=== PATIENT | female | born 1945 | race Caucasian/White ===

== ENCOUNTER 2023-02-12 11:25 | Inpatient (IN) | payer MEDICARE, OTHER ==
[~2023-02-12] VITALS: Ht 162.5 cm; Wt 131.1 kg
[~2023-02-12 11:25] MED LIST: APRESOLINE25 MG PO; BUSPIRONE10 MG PO; DRIZALMA SPRINK60 MG PO; GABAPENTIN100 M2 PO; GAVISCON ES TA1 EACH PO; HYDROCODONE-AC1 EAC1 PO; IRON325 M1 PO; LEVOFLOXACIN750 M2 PO; LEVOTHYROXINE75 MCG PO; MIRALAX17 GM PO; MUCUS RELIEF600 MG PO; NORVASC2.5 MG PO; NORVASC5 MG PO; PROTONIX40 MG PO
[2023-02-12 11:29] VITALS: BP 137/71
[2023-02-12] MEDS ORDERED: PROVENTIL HFA6.7 GM IH (11:51)
[2023-02-12] MEDS ORDERED: VITAMIN B121000 MC1 PO (11:52)
[2023-02-12] MEDS ORDERED: DICLOFENAC SODI50 GM T (11:56)
[2023-02-12] MEDS ORDERED: Ipratropium Brom3 ML NEB (12:01)
[2023-02-12] MEDS ORDERED: OXYCODONE-ACET1 EACH PO (12:04)
[2023-02-12] MEDS ORDERED: Magnesium Oxid400 MG PO (12:06)
[2023-02-12] MEDS ORDERED: TRELEGY ELLIPT1 EAC1 INH (12:07)
[2023-02-12] MEDS ORDERED: Carafate1 GM PO (12:07)
[2023-02-12] MEDS ORDERED: SENNA8.6 MG PO (12:07)
[2023-02-12] MEDS ORDERED: TYLENOL EXTRA500 MG PO (12:08)
[2023-02-12 12:09] LABS: BASO % 0.4 % (0.0-1.0); EOS # 0.1 10*3/uL (0.0-0.4); EOS % 1.3 % (1.0-4.0); HEMATOCRIT 38.1 % (37.0-47.0); LYMPH # 0.5 10*3/uL (1.3-4.4); LYMPH % 9.8 % (27.0-41.0); MEAN CELL VOLUME 96.5 fl (81.0-99.0); MEAN CORPUSCULAR HGB 31.1 pg (27.0-31.0); MEAN CORPUSCULAR HGB CONC 32.3 g/dl (33.0-37.0); MEAN PLATELET VOLUME 9.9 fl (9.6-12.3); MONO # 0.2 10*3/uL (0.1-1.0); MONO % 4.4 % (3.0-9.0); NEUT % 83.7 % (47.0-73.0); PLATELET COUNT AUTOMATED 192 10*3/uL (130-400); RED BLOOD COUNT 3.95 10*6/uL (4.10-5.10); RED CELL DISTRI WIDTH 13.2 % (0-14.5); WHITE BLOOD COUNT 4.8 10*3/uL (4.8-10.8)
[2023-02-12 12:32] LABS: ALKALINE PHOSPHATASE 143 U/L (46-116); BUN 9 mg/dl (9-23); CHLORIDE 102 mmol/L (98-107); POTASSIUM 3.6 mmol/L (3.4-5.1); SGPT/ALT 433 U/L (10-49); TOTAL PROTEIN 6.8 gm/dL (6.0-8.0)
[2023-02-12 13:17] LABS: BILIRUBIN Negative (Negative); BLOOD Negative (Negative); CLARITY Clear (Clear); COLOR Yellow (Yellow); GLUCOSE Negative (Negative); KETONE Negative (Negative); LEUKO ESTERASE Negative (Negative); NITRITE Negative (Negative); PH 7.5 (4.5-8.0); SPECIFIC GRAVITY <= 1.005 (1.001-1.030)
[2023-02-12 13:30] LABS: EPITHELIAL CELLS 0-2; WBC 0-2 wbc/hpf (0-5)
[2023-02-12 13:31] LABS: BACTERIA TRACE
[2023-02-12 15:16] LABS: ACT PARTIAL THROMBO TIME 25.7 SECONDS (20.0-32.1)
[2023-02-12 19:29] VITALS: BP 141/87
[2023-02-12 23:09] VITALS: BP 128/72
[2023-02-12 23:23] VITALS: BP 143/68
[2023-02-13 06:38] LABS: BASO % 1.3 % (0.0-1.0); EOS # 0.3 10*3/uL (0.0-0.4); EOS % 8.6 % (1.0-4.0); HEMATOCRIT 37.1 % (37.0-47.0); LYMPH # 0.6 10*3/uL (1.3-4.4); LYMPH % 18.1 % (27.0-41.0); MEAN CELL VOLUME 97.4 fl (81.0-99.0); MEAN CORPUSCULAR HGB 31.5 pg (27.0-31.0); MEAN CORPUSCULAR HGB CONC 32.3 g/dl (33.0-37.0); MEAN PLATELET VOLUME 9.9 fl (9.6-12.3); MONO # 0.2 10*3/uL (0.1-1.0); MONO % 5.9 % (3.0-9.0); NEUT % 65.8 % (47.0-73.0); PLATELET COUNT AUTOMATED 190 10*3/uL (130-400); RED BLOOD COUNT 3.81 10*6/uL (4.10-5.10); RED CELL DISTRI WIDTH 13.3 % (0-14.5)
[2023-02-13 06:51] LABS: ACT PARTIAL THROMBO TIME 26.2 SECONDS (20.0-32.1)
[2023-02-13 07:47] LABS: ALKALINE PHOSPHATASE 180 U/L (46-116); BUN 10 mg/dl (9-23); CHLORIDE 101 mmol/L (98-107); CHOLESTEROL 159 mg/dL (<200); LDL CHOLESTEROL 54 mg/dL (9-159); POTASSIUM 3.2 mmol/L (3.4-5.1); SGPT/ALT 738 U/L (10-49); TOTAL PROTEIN 6.5 gm/dL (6.0-8.0); TRIGLYCERIDES 83 mg/dl (<150)
[2023-02-13 08:00] VITALS: BP 157/69
[2023-02-13 12:00] VITALS: BP 141/78
[2023-02-13 16:00] VITALS: BP 160/77
[2023-02-13 20:00] VITALS: BP 138/61
[2023-02-14] VITALS: BP 142/54
[2023-02-14 06:44] LABS: BASO % 0.8 % (0.0-1.0); EOS # 0.3 10*3/uL (0.0-0.4); HEMATOCRIT 33.3 % (37.0-47.0); LYMPH # 0.8 10*3/uL (1.3-4.4); MEAN CELL VOLUME 95.4 fl (81.0-99.0); MEAN CORPUSCULAR HGB 31.5 pg (27.0-31.0); MEAN PLATELET VOLUME 9.7 fl (9.6-12.3); MONO # 0.3 10*3/uL (0.1-1.0); MONO % 6.4 % (3.0-9.0); NEUT # 3.7 10*3/uL (2.3-7.9); NEUT % 72.4 % (47.0-73.0); PLATELET COUNT AUTOMATED 165 10*3/uL (130-400); RED BLOOD COUNT 3.49 10*6/uL (4.10-5.10); RED CELL DISTRI WIDTH 13.3 % (0-14.5); WHITE BLOOD COUNT 5.2 10*3/uL (4.8-10.8)
[2023-02-14 07:07] LABS: ALKALINE PHOSPHATASE 139 U/L (46-116); BUN 9 mg/dl (9-23); CHLORIDE 105 mmol/L (98-107); POTASSIUM 3.4 mmol/L (3.4-5.1); SGPT/ALT 390 U/L (10-49); TOTAL PROTEIN 5.9 gm/dL (6.0-8.0)
[2023-02-14 08:00] VITALS: BP 152/73
[2023-02-14 12:00] VITALS: BP 129/68
[2023-02-14 16:00] VITALS: BP 141/77
[2023-02-14 20:00] VITALS: BP 140/73
[2023-02-15] VITALS: BP 156/73
[2023-02-15 05:06] LABS: HBSAG Negative (Negative); HEP B CORE AB, IGM Negative (Negative); HEPATITIS C ANTIBODY Non Reactive (Non Reactive)
[2023-02-15 06:08] LABS: CYTOMEGALOVIRUS AB, IGG >10.00 U/mL (0.00-0.59)
[2023-02-15 06:58] LABS: BASO % 0.4 % (0.0-1.0); EOS # 0.1 10*3/uL (0.0-0.4); EOS % 1.9 % (1.0-4.0); LYMPH # 0.7 10*3/uL (1.3-4.4); MEAN CELL VOLUME 94.8 fl (81.0-99.0); MEAN CORPUSCULAR HGB 31.3 pg (27.0-31.0); MEAN PLATELET VOLUME 9.8 fl (9.6-12.3); MONO # 0.4 10*3/uL (0.1-1.0); MONO % 5.9 % (3.0-9.0); NEUT # 5.6 10*3/uL (2.3-7.9); NEUT % 81.5 % (47.0-73.0); PLATELET COUNT AUTOMATED 172 10*3/uL (130-400); RED BLOOD COUNT 3.48 10*6/uL (4.10-5.10); RED CELL DISTRI WIDTH 13.3 % (0-14.5); WHITE BLOOD COUNT 6.8 10*3/uL (4.8-10.8)
[2023-02-15 07:22] LABS: ALKALINE PHOSPHATASE 123 U/L (46-116); BUN 8 mg/dl (9-23); CHLORIDE 101 mmol/L (98-107); POTASSIUM 3.4 mmol/L (3.4-5.1); SGPT/ALT 230 U/L (10-49); TOTAL PROTEIN 6.1 gm/dL (6.0-8.0)
[2023-02-15 08:00] VITALS: BP 137/62
== END 2023-02-15 13:50 | DRG 442 ==
LOC: ED 11:25 → EDHOLD 17:12 → 5E 17:12
PROVIDERS: Nurse Practitioner; Student in an Organized Health Care Education/Training Program; ADMIT Internal Medicine; ATTEND Internal Medicine
DX: B17.9 Acute viral hepatitis, unspecified (principal); Z68.42 Body mass index [BMI] 45.0-49.9, adult; E87.6 Hypokalemia; K21.9 Gastro-esophageal reflux disease without esophagitis; J44.9 Chronic obstructive pulmonary disease, unspecified; I10 Essential (primary) hypertension; E03.9 Hypothyroidism, unspecified; R73.9 Hyperglycemia, unspecified; E66.9 Obesity, unspecified; S31.114A Laceration without foreign body of abdominal wall, left lower quadrant without penetration into peritoneal cavity, initial encounter; X58.XXXA Exposure to other specified factors, initial encounter; Y93.89 Activity, other specified; Z88.1 Allergy status to other antibiotic agents; Z88.0 Allergy status to penicillin; Z88.8 Allergy status to other drugs, medicaments and biological substances; Z90.49 Acquired absence of other specified parts of digestive tract; Z95.0 Presence of cardiac pacemaker; Z87.891 Personal history of nicotine dependence; Z80.0 Family history of malignant neoplasm of digestive organs; Z83.3 Family history of diabetes mellitus; Y92.89 Other specified places as the place of occurrence of the external cause; Y99.8 Other external cause status